=== PATIENT | male | born 1985 ===

== ENCOUNTER 2021-12-14 17:30 | Observation (INO) ==
[2021-12-14] MEDS ORDERED: Melatonin 3 MG TABLET PO PRN (22:22)
[2021-12-14] MEDS ORDERED: Naloxone 0.4 MG/ML INJ IVP PRN (22:22)
[2021-12-14] MEDS ORDERED: Acetaminophen 325 MG TABLET PO PRN (22:22)
[2021-12-14] MEDS ORDERED: Ondansetron 4 MG/2 ML VIAL IVP PRN (22:22)
[2021-12-15 02:58] LABS: Basophils # 0.1 K/mcL (0.0-0.2); Basophils % 0.8 %; Eosinophils # 0.1 K/mcL (0.0-0.6); Eosinophils % 1.8 %; Hemoglobin 14.3 g/dL (12.9-16.9); Immature Granulocytes % 0.5 % (0-4); Lymphocytes # 3.1 K/mcL (0.6-4.6); Lymphocytes % 39.3 %; Mean Corpuscular Hemoglobin 30.8 pg (28.0-33.3); Mean Corpuscular Volume 90.5 fL (83.0-100.0); Mean Platelet Volume 10.3 fL (9.4-12.4); Monocytes # 0.7 K/mcL (0.0-1.3); Monocytes % 9.2 %; Neutrophils # 3.8 K/mcL (1.6-8.9); Platelet Count 277 K/mcL (140-400); Red Blood Count 4.64 M/mcL (4.19-5.50); Red Cell Distribution Width 13.2 % (11.5-14.5); Segmented Neutrophils % 48.4 %; White Blood Count 7.9 K/mcL (4.3-11.1)
[2021-12-15 03:05] LABS: BUN/Creatinine Ratio 8 (6-26); Blood Urea Nitrogen 8 mg/dL (6-20); Carbon Dioxide 29 mEq/L (23-29); Chloride 105 mEq/L (98-107); Chol/HDL Ratio 7.4 (0-4.9); Cholesterol 236 mg/dL (< 200); Glucose 126 mg/dL (70-105); HDL Cholesterol 32 mg/dL (40-59); Osmolality,Calculated 286 (280-300); Phosphorous 2.9 mg/dL (2.7-4.5); Potassium 3.4 mEq/L (3.5-5.1); Sodium 138 mEq/L (136-145); Triglycerides 422 mg/dL (< 150)
[2021-12-15 03:09] LABS: Prothrombin Time 10.8 Seconds (9.4-12.1)
[2021-12-15] MEDS ORDERED: Aspirin Enteric Coated 81 MG Tablet PO SCH (09:00)
[2021-12-15 10:42] VITALS: BP 143/94; PULSE 82; TEMP 97.9; O2SAT 97
[2021-12-15 17:24] LABS: Estimated Average Glucose 108 mg/dl; Hemoglobin A1C 5.4 %
[2021-12-16] MEDS ORDERED: *HR* Enoxaparin 40 MG/0.4 ML SYRINGE SQ SCH (06:00)
== END 2021-12-15 15:35 | disposition home or self-care (01) ==
LOC: 3BNU → SUATTDRO 21:06
PROVIDERS: ADMIT Internal Medicine; ATTEND Registered Nurse